=== PATIENT | male | born 1990 | race Caucasian/White ===

== ENCOUNTER 2018-04-03 00:57 | Emergency (ER) | payer SELFPAY ==
[~2018-04-03] VITALS: Ht 185.4 cm; Wt 76.2 kg
[~2018-04-03 00:57] MED LIST: CODACEE120 PO; HYDCOR2.5C PR; IBUP800 PO; OMEP20ER PO; PENVK500 PO; Percocet 5-3251 EACH PO
== END 2018-04-03 02:06 | disposition home or self-care (01) ==
LOC: ER 00:57
DX: T62.0X1A Toxic effect of ingested mushrooms, accidental (unintentional), initial encounter (principal); F17.210 Nicotine dependence, cigarettes, uncomplicated
CPT/HCPCS: 99283

== ENCOUNTER 2019-11-17 15:37 | Emergency (ER) | payer OTHER ==
[~2019-11-17] VITALS: Ht 185.4 cm; Wt 81.7 kg
[2019-11-17] MEDS ORDERED: HYDR1TAB94 PO (17:07)
[2019-11-17] MEDS ORDERED: BUPR150ER PO (17:07)
[2019-11-17] MEDS ORDERED: IBUP800 PO (17:07)
[2019-11-17] MEDS ORDERED: Robaxin-750750 MG PO (17:08)
== END 2019-11-17 17:30 | disposition home or self-care (01) ==
LOC: ER 15:37
DX: S01.01XA Laceration without foreign body of scalp, initial encounter (principal); S60.812A Abrasion of left wrist, initial encounter; M54.2 Cervicalgia; M54.6 Pain in thoracic spine; F17.210 Nicotine dependence, cigarettes, uncomplicated; W20.8XXA Other cause of strike by thrown, projected or falling object, initial encounter; Y92.89 Other specified places as the place of occurrence of the external cause; Y99.0 Civilian activity done for income or pay
CPT/HCPCS: 36415; 70450; 72125; 72128; J2405; J3010

== ENCOUNTER 2021-12-10 10:37 | Inpatient (IN) | payer OTHER ==
[~2021-12-10] VITALS: Ht 188 cm; Wt 78.1 kg
[~2021-12-10 10:37] MED LIST changes: +BUPR150ER PO; +CRUTCH3 XX; +HYDR1TAB94 PO; +Norco 5-325 Ta1 EACH PO; +Robaxin-750750 MG PO
[2021-12-10 14:39] LABS: BASOPHILS ABSOLUTE AUTO 0.02 K/mm3 (0.00-0.23); BASOPHILS PERCENT AUTO 0 % (0-2); EOSINOPHILS ABSOLUTE AUTO 0.03 K/mm3 (0.00-0.68); EOSINOPHILS PERCENT AUTO 0 % (0-6); Hematocrit 38.7 % (37.0-53.0); Hemoglobin 13.5 g/dL (13.5-17.5); IMMATURE GRAN ABSOLUTE AUTO 0.04 K/mm3 (0.00-0.10); IMMATURE GRAN PERCENT AUTO 0 % (0-1); LYMPHOCYTES PERCENT AUTO 10 % (21-46); MONOCYTES ABSOLUTE AUTO 0.71 K/mm3 (0.16-1.47); MONOCYTES PERCENT AUTO 6 % (4-13); Mean Corpuscular HGB 30.9 pg (26.0-34.0); Mean Corpuscular HGB Conc 34.9 g/dL (31.5-36.5); Mean Corpuscular Volume 89 fL (80-100); Mean Platelet Volume 10.2 fL (9.1-12.4); NEUTROPHILS ABSOLUTE AUTO 9.73 K/mm3 (1.96-9.15); NEUTROPHILS PERCENT AUTO 84 % (41-73); Platelet Count 263 K/mm3 (150-400); RDW Coefficient Variation 13.2 % (11.7-14.2); RDW Standard Deviation 43.2 fL (35.1-46.3); Red Blood Cell Count 4.37 M/mm3 (4.30-5.90); White Blood Cell Count 11.63 K/mm3 (4.00-11.30)
[2021-12-10 14:53] LABS: International Normalized Ratio 1.03; Prothrombin Time Results 10.8 Sec (9.7-11.5)
[2021-12-10 16:13] LABS: Albumin, Blood 3.9 g/dL (3.4-5.0); Albumin/Globulin Ratio 1.4 (0.8-1.8); Bilirubin, Total 0.6 mg/dL (0.1-1.0); Globulin, Blood 2.8 g/dL (2.2-4.0); Potassium, Blood 3.6 mmol/L (3.5-5.5); Total Protein, Blood 6.7 g/dL (6.4-8.2)
--- NOTE | 2021-12-10 16:41 | NUR ---
ADMIT ARRIVED FROM ED VIA HAYDEE, AWAKE, A&OX4 BUT DROWSY, STATES FEELING "OUT OF IT" PT HAD SEDATION IN ED PRIOR TO SPLINTING AND WASHOUT OF LLE WOUND PER FELT STRIP FINISHER, LLE IN SPLINT AND JEANNE WRAP, ELEVATED ON PILLOWS, DR. SILVEIRA HERE TO SEE PT, PLAN FOR OR TOMORROW WITH DR. MELENDEZ, CONT. TO MONITOR FOR ANY CHANGES, MEDICATE FOR PAIN PRN.
--- NOTE | 2021-12-10 18:26 | NUR ---
SUMMARY ADMIT FROM ED, L ANKLE FX, LLE NOTED IN SPLINT AND JEANNE WRAP, PT MORE ALERT NOW AND ORIENTED, MEDICATED FOR PAIN, REGULAR DINNER GIVEN, PLAN FOR OR TOMORROW, NPO AFTER MN, NO ACUTE CHANGES THIS SHIFT.
[2021-12-11 04:55] LABS: BASOPHILS ABSOLUTE AUTO 0.02 K/mm3 (0.00-0.23); BASOPHILS PERCENT AUTO 0 % (0-2); EOSINOPHILS ABSOLUTE AUTO 0.07 K/mm3 (0.00-0.68); EOSINOPHILS PERCENT AUTO 1 % (0-6); Hematocrit 35.7 % (37.0-53.0); Hemoglobin 12.5 g/dL (13.5-17.5); IMMATURE GRAN ABSOLUTE AUTO 0.02 K/mm3 (0.00-0.10); IMMATURE GRAN PERCENT AUTO 0 % (0-1); LYMPHOCYTES ABSOLUTE AUTO 1.79 K/mm3 (0.84-5.20); LYMPHOCYTES PERCENT AUTO 16 % (21-46); MONOCYTES PERCENT AUTO 11 % (4-13); Mean Corpuscular Volume 89 fL (80-100); Mean Platelet Volume 10.4 fL (9.1-12.4); NEUTROPHILS ABSOLUTE AUTO 8.08 K/mm3 (1.96-9.15); NEUTROPHILS PERCENT AUTO 72 % (41-73); Platelet Count 233 K/mm3 (150-400); RDW Coefficient Variation 13.3 % (11.7-14.2); Red Blood Cell Count 4.03 M/mm3 (4.30-5.90); White Blood Cell Count 11.18 K/mm3 (4.00-11.30)
[2021-12-11 05:15] LABS: Albumin, Blood 3.4 g/dL (3.4-5.0); Albumin/Globulin Ratio 1.2 (0.8-1.8); Bun/Creatinine Ratio 8.6 (12.0-20.0); Calcium, Blood 8.7 mg/dL (8.5-10.1); Creatinine, Blood 0.93 mg/dL (0.60-1.20); Globulin, Blood 2.9 g/dL (2.2-4.0); Potassium, Blood 3.6 mmol/L (3.5-5.5); Total Protein, Blood 6.3 g/dL (6.4-8.2)
--- NOTE | 2021-12-11 06:09 | NUR ---
SHIFT SUMMARY A/O X4- BEDREST DUE TO L ANKLE FX. SLINT AND JEANNE WRAP IN PLACE, SURGEON CALLED DUE TO RED DRAINAGE THROUGH JEANNE WRAP. SURGEON STATED TO REINFORCE W/ ABD PADS AND ANOTHER JEANNE WRAP. REINFORCED AND WRAPPED AT THAT TIME. VITAL SIGNS STABLE. PAIN MANAGED W/ IV PAIN MEDICATIONS. PLEASANT AND COOPERATIVE W/ CARE. NPO SINCE MIDNIGHT. WILL CONTINUE TO MONITOR AND REPORT TO ONCOMING RN.
--- NOTE | 2021-12-11 13:02 | NUR ---
PT TO SDS VIA HAYDEE. Patient confirms NPO status and agrees with scheduled surgery. Lungs clear T/O to Auscultation. Pre-Op teaching done. Pt verbalizes understanding.
--- NOTE | 2021-12-11 14:04 | NUR ---
12/11/21 1404 Ihsan Terry PT CAST ON LEFT LEG REMOVED, BLOOD IN PADDING. OPEN WOUND ON MEDIAL ANKLE OOZING BLOOD.
--- NOTE | 2021-12-11 16:20 | NUR ---
POST OP ARRIVES TO ROOM VIA GOURNEY; TRANSFERED TO HOSPITAL BED w/ 4 PERSON ASSIST. ALERT, ORIENTED, PLEASANT. DENIES PAIN OR N/V. L FOOT IN SPLINT. BRISK CAP REFILL. PWD. ELEVATED ON 2 PILLOWS. VSS; CONT's TO BE GELACIO. WATER & JUICE GIVEN.
[2021-12-11] MEDS ORDERED: Norco 5-325 Ta1 EACH PO (17:40)
[2021-12-11] MEDS ORDERED: SENNA LAXATIVE8.6 MG PO (17:40)
[2021-12-11] MEDS ORDERED: Acetaminophen650 M1 PO (17:40)
[2021-12-11] MEDS ORDERED: IBUP800 PO (17:41)
[2021-12-11] MEDS ORDERED: PROBIOTIC1 EA13 PO (17:41)
[2021-12-11] MEDS ORDERED: SULTRIDS PO (17:42)
--- NOTE | 2021-12-11 18:10 | NUR ---
DISCHARGE PT WANTING TO GO HOME. CALLED DR MELENDEZ & RECEIVED HIS DC INSTRUCTIONS & APPROVAL. DR SKINNER BY TO SEE PT. SCRIPT GIVEN & OTHER MEDS CALLED INTO LIT's SAVE ON. SNACKING, DRINKING WELL. DENIES PAIN. ABLE TO STAND EASILY TO TRANSFER & GET DRESSED. HAS CRUTCHES AT HOME. INSTRUCTED DR MELENDEZ's ORDERS OF ICE (ESPECIALLY TO BACK OF ANKLE), ELEVATION, USING CRUTCHES, & STRICT NON-WEIGHT BEARING. ESCORTED OUT VIA WC.
== END 2021-12-11 18:15 | disposition home or self-care (01) | DRG 494 ==
LOC: ER 10:37 → SURS 15:13
PROVIDERS: Family Medicine; Podiatrist Foot & Ankle Surgery; ADMIT Internal Medicine
PROC: 0QSK04Z Reposition Left Fibula with Internal Fixation Device, Open Approach (ICD-10-PCS; 2021-12-11)
PROC: 0QSH04Z Reposition Left Tibia with Internal Fixation Device, Open Approach (ICD-10-PCS; principal; 2021-12-11 13:00)
DX: S82.842B Displaced bimalleolar fracture of left lower leg, initial encounter for open fracture type I or II (principal); S93.05XA Dislocation of left ankle joint, initial encounter; G43.909 Migraine, unspecified, not intractable, without status migrainosus; F17.210 Nicotine dependence, cigarettes, uncomplicated; F12.90 Cannabis use, unspecified, uncomplicated; R00.1 Bradycardia, unspecified; S80.812A Abrasion, left lower leg, initial encounter; V89.2XXA Person injured in unspecified motor-vehicle accident, traffic, initial encounter; Z98.890 Other specified postprocedural states
CPT/HCPCS: 36415; 73610; 80053; 85025; 85610; 85730; 86900; 86901; A9270; C1713; J0171; J0690; J1170; J1885; J2250; J2405; J2704; J2765; J2795; J3010; J7030; J7120

== ENCOUNTER 2024-08-21 14:58 | Day surgery (SDC) | payer OTHER ==
[2024-08-21] VITALS (9 sets, daily range): BP systolic 115–145; BP diastolic 54–85
[~2024-08-21] VITALS: Ht 185.4 cm; Wt 77.5 kg
[~2024-08-21 14:58] MED LIST changes: +Acetaminophen650 M1 PO; +PROBIOTIC1 EA13 PO; +SENNA LAXATIVE8.6 MG PO; +SULTRIDS PO
[2024-08-21] MEDS ORDERED: Ampicillin Sod/Sulbactam Sod 3 GM in NS 100 ML IV SCH (15:30)
[2024-08-21] MEDS ORDERED: propofoL 20 ML IV ONE ×3 (15:30→17:33)
[2024-08-21] MEDS ORDERED: Lactated Ringer's 1,000 ML IV SCH ×2 (15:30→16:35)
[2024-08-21] MEDS ORDERED: FentaNYL Citrate 50 MCG/ML 2 ML Injection ONE ×2 (15:31→18:07)
[2024-08-21] MEDS ORDERED: FentaNYL Citrate 50 MCG/ML 5 ML Injection ONE (15:31)
[2024-08-21] MEDS ORDERED: Lidocaine 1%-Epineph 1:200000 30 ML SDV ONE ×2 (15:43→18:17)
[2024-08-21] MEDS ORDERED: Bacitracin Zinc Oint 1GRAM UD Packet TOP ONE (15:55)
[2024-08-21] MEDS ORDERED: Midazolam HCl 1MG / ML 2ML Vial IV PRN (16:35)
[2024-08-21] MEDS ORDERED: FentaNYL Citrate 50 MCG/ML 2 ML Injection IV PRN ×2 (16:35→16:40)
[2024-08-21] MEDS ORDERED: HYDROmorphone HCl/Pf 1MG SYR IV PRN (16:35)
[2024-08-21] MEDS ORDERED: Lidocaine HCl 1% 5 ML SYR INJ ONE (16:35)
[2024-08-21] MEDS ORDERED: Metoclopramide HCl 5MG / ML 2ML Vial IV PRN (16:35)
[2024-08-21] MEDS ORDERED: Prochlorperazine Edisylate 10 mg Vial IV PRN (16:40)
[2024-08-21] MEDS ORDERED: Ondansetron HCl 2 MG / ML 2ML Vial IV PRN (16:40)
[2024-08-21] MEDS ORDERED: Albuterol 2.5 MG/3 ML VIAL INH PRN (16:40)
--- NOTE | 2024-08-21 16:49 | NUR ---
08/21/24 1649 Jose Simeon AND [facility] POPE FROM [facility].
[2024-08-21] MEDS ORDERED: propofoL 40 ML IV ONE (17:05)
[2024-08-21] MEDS ORDERED: Dexamethasone Sod Phos 10 MG/ML 1ML VIAL ONE (17:13)
[2024-08-21] MEDS ORDERED: Ondansetron HCl 2 MG / ML 2ML Vial ONE (17:13)
[2024-08-21] MEDS ORDERED: propofoL 100 ML IV ONE (17:42)
[2024-08-21] MEDS ORDERED: Ketorolac Tromethamine 30mg Vial ONE (18:07)
[2024-08-21] MEDS ORDERED: OxyCODONE 5 mg/Acetamin 325 mg TABLET PO PRN (18:45)
[2024-08-21] MEDS ORDERED: HYDROmorphone HCl/Pf 1MG SYR ONE (19:02)
--- NOTE | 2024-08-21 19:31 | NUR ---
Discharge instructions reviewed with patient. Patient verbalizes understanding. Copy given to patient to take home. Dressing to procedure site clean, dry, intact with no visible drainage, swelling, erythema or bruising noted. Patient States Post-Procedure ride home has been arranged. Discharged via wheelchair to private car for ride home. ALL BELONINGS RETURNED TO PATIENT, WAITING FOR RIDE HOME, FIRST RIDE NOT AVAILABLE.
--- NOTE | 2024-08-21 20:02 | NUR ---
PT LUIS ENRIQUEE JUST CAME TO GET PATIENT.
== END 2024-08-21 23:00 | disposition home or self-care (01) ==
LOC: ORSCMMR 14:58 → ORD 16:00 → ORSCMMR 23:00
PROVIDERS: Surgery
PROC: 06BY0ZC Excision of Hemorrhoidal Plexus, Open Approach (ICD-10-PCS; principal; 2024-08-21 16:00)
PROC: 0DBN8ZX Excision of Sigmoid Colon, Via Natural or Artificial Opening Endoscopic, Diagnostic (ICD-10-PCS; principal; 2024-08-21 16:00)
DX: K62.5 Hemorrhage of anus and rectum (principal); K64.4 Residual hemorrhoidal skin tags; K64.8 Other hemorrhoids; K59.00 Constipation, unspecified; D12.5 Benign neoplasm of sigmoid colon
CPT/HCPCS: 88304; 88305; A9270; J0295; J1100; J1171; J1885; J2405; J2704; J3010; J7120

== ENCOUNTER 2024-08-26 23:53 | Emergency (ER) | payer OTHER ==
[~2024-08-26] VITALS: Ht 185.4 cm; Wt 81.7 kg
[2024-08-27] VITALS: BP 142/823
[2024-08-27 00:22] LABS: BASOPHILS ABSOLUTE AUTO 0.04 K/mm3 (0.00-0.23); BASOPHILS PERCENT AUTO 0 % (0-2); EOSINOPHILS ABSOLUTE AUTO 0.09 K/mm3 (0.00-0.68); EOSINOPHILS PERCENT AUTO 1 % (0-6); Hematocrit 38.4 % (37.0-53.0); Hemoglobin 13.2 g/dL (13.5-17.5); IMMATURE GRAN ABSOLUTE AUTO 0.06 K/mm3 (0.00-0.10); IMMATURE GRAN PERCENT AUTO 0 % (0-1); LYMPHOCYTES ABSOLUTE AUTO 1.05 K/mm3 (0.84-5.20); LYMPHOCYTES PERCENT AUTO 7 % (21-46); MONOCYTES ABSOLUTE AUTO 0.95 K/mm3 (0.16-1.47); MONOCYTES PERCENT AUTO 6 % (4-13); Mean Corpuscular HGB Conc 34.4 g/dL (31.5-36.5); Mean Corpuscular Volume 88 fL (80-100); NEUTROPHILS ABSOLUTE AUTO 12.55 K/mm3 (1.96-9.15); NEUTROPHILS PERCENT AUTO 85 % (41-73); NRBC ABSOLUTE 0.00 K/mm3 (0.00-0.02); NRBC Auto 0.0 /100 WBC (0.0-0.2); Platelet Count 247 K/mm3 (150-400); RDW Coefficient Variation 12.3 % (11.7-14.2); RDW Standard Deviation 39.6 fL (35.1-46.3)
[2024-08-27 00:46] LABS: Alanine Aminotransfer (ALT/SGP 25.0 U/L (12-78); Albumin, Blood 4.0 g/dL (3.4-5.0); Albumin/Globulin Ratio 1.2 (0.8-1.8); Anion Gap 6.0 mmol/L (3-11); Aspartate Aminotrans (AST/SGOT 19.0 U/L (12-37); Bilirubin, Total 0.8 mg/dL (0.1-1.0); Blood Urea Nitrogen 14.0 mg/dL (8-24); CO2, Blood 27.0 mmol/L (21-32); Calcium, Blood 8.8 mg/dL (8.5-10.1); Chloride, Blood 107.0 mmol/L (98-108); Creatinine, Blood 1.06 mg/dL (0.60-1.20); Globulin, Blood 3.3 g/dL (2.2-4.0); Glucose, Blood 109.0 mg/dL (70-99); Potassium, Blood 4.1 mmol/L (3.5-5.5); Sodium, Blood 136.0 mmol/L (136-145); Total Protein, Blood 7.3 g/dL (6.4-8.2)
[2024-08-27] MEDS ORDERED: PREPARATION H1 EACH TOP (00:48)
[2024-08-27] MEDS ORDERED: DOCU100 PO (00:48)
[2024-08-27] MEDS ORDERED: RX Prepack 6 Tabs Oxycodone 5mg UD ONE (00:50)
== END 2024-08-27 01:15 | disposition home or self-care (01) ==
LOC: ER 23:53
PROVIDERS: Student in an Organized Health Care Education/Training Program
DX: K62.89 Other specified diseases of anus and rectum (principal); F17.210 Nicotine dependence, cigarettes, uncomplicated; Z98.890 Other specified postprocedural states
CPT/HCPCS: 80053; 85025; 99283; A9270